=== PATIENT | female | born 1970 | race Hispanic/Latino ===

== ENCOUNTER 2019-10-10 10:26 | Emergency (ER) | payer SELFPAY ==
[2019-10-10 11:56] LABS: Absolute Lymphocytes (CBC) 1.6 K/uL (0.7-4.9); Basophils % 0.5 % (0-1.3); Hematocrit 40.9 % (36.0-45.0); Lymphocytes % 14.2 % (15.3-44.8); MPV 8.1 fL (7.6-11.3); RBC Red Blood Cell Count 4.43 M/uL (3.86-4.86)
[2019-10-10 12:15] LABS: Albumin 3.7 g/dL (3.4-5.0); Bilirubin Direct 0.3 mg/dL (0-0.2); Bilirubin Total 1.3 mg/dL (0.2-1.0); Potassium 3.6 mmol/L (3.5-5.1); Protein, Total 8.6 g/dL (6.4-8.2)
[2019-10-10 12:28] LABS: Urine Blood 2+ (NEG); Urine Glucose NEGATIVE (NEG); Urine Protein 3+ (NEG); Urine Specific Gravity 1.025 (1.005-1.030); Urine pH 7.5 (5.0-7.0)
[2019-10-10 14:09] LABS: Urine Bacteria 20-50 /HPF (<20); Urine Culture Reflex Order NOT NEEDED
--- NOTE | 2019-10-10 14:20 | RAD REPORT ---
EXAM DESCRIPTION: CT - Abdomen Pelvis W Contrast - 10/10/2019 2:04 pm CLINICAL HISTORY: ABD PAIN COMPARISON: No comparisons TECHNIQUE: Biphasic, helical CT imaging of the abdomen and pelvis was performed following 100 ml non -ionic IV contrast. No oral contrast. All CT scans are performed using dose optimization technique as appropriate and may include automated exposure control or mA/KV adjustment according to patient size. FINDINGS: No suspicious findings in the lung bases. Liver is borderline for fatty infiltration. No focal liver lesion. Portal vein enhances normally. Spl een and pancreas show no acute findings. Cholecystectomy clips in place with no biliary tree dilatati on. Renal function is asymmetric. There is delay on the left side. Heterogeneous enhancement pattern seen primarily in the upper pole of the left kidney. Hyperdense material in the calyx and calices favored to be contrast rather than a staghorn calculus. Attenuation is less than 500 Hounsfield units. No fo lydia mass lesion. No dilatation of either ureter. No obstructing ureteral calculi. Urinary bladder is fully contracted. No adrenal abnormalities. Uterus is absent. Ovaries are absent or obscured by adjac ent isodense bowel. No dilated bowel loops or bowel wall thickening. No free air, free fluid or inflammatory stranding. No hernia, mass or bulky lymphadenopathy. No suspicious bony findings. IMPRESSION: Pyelonephritis enhancement pattern in the left kidney. Contrast in the left-side nondil ated collecting system favored to be old contrast rather than a staghorn calculus. Urinary bladder is fully contracted limiting assessment. No right-sided collecting system abnormality . Borderline fatty infiltration of the liver.
[2019-10-10] MEDS ORDERED: CEFTRIAXONE/SWI 2gm 2 GM/20 ML SYR IV ONE (15:00)
--- NOTE | 2019-10-10 15:05 | ER ---
Nurse's Notes [facility] Name: Pilar Funez Age: 48 yrs Sex: Female : 1970 Arrival Date: 10/10/2019 Time: 10:29 Bed 15 Private MD: Diagnosis: Acute Pyelonephritis Presentation: 10/09 10:37 Chief complaint: Patient's son or daughter states: L flank pain radiating to the front ca1 x 2 days. Reports nausea with the pain, diarrhea. Denies vomiting. Reports dizziness and headache. Reports burning with urination, urgency and frequency. Reports history of kidney stones. Coronavirus screen: Proceed with normal triage. Patient denies a cough. Patient denies shortness of breath or difficulty breathing. Patient denies measured and/or subjective temperature greater than 100.4F prior to today's visit. Patient denies travel on a cruise ship or to a country the [facility] currently lists as an affected area. Patient denies contact with known and/or suspected case of COVID-19. Ebola Screen: Patient negative for fever greater than or equal to 101.5 degrees Fahrenheit, and additional compatible Ebola Virus Disease symptoms Patient denies exposure to infectious person. Patient denies travel to an Ebola-affected area in the 21 days before illness onset. No symptoms or risks identified at this time. Initial Sepsis Screen: Does the patient meet any 2 criteria? No. Patient's initial sepsis screen is negative. Does the patient have a suspected source of infection? No. Patient's initial sepsis screen is negative. Risk Assessment: Do you want to hurt yourself or someone else? Patient reports no desire to harm self or others. Onset of symptoms was October 10, 2019. 10:37 Method Of Arrival: Ambulatory ca1 10:37 Acuity: RUDDY 3 ca1 Triage Assessment: 10:53 General: Appears in no apparent distress. comfortable, obese, Behavior is cooperative, bp appropriate for age, anxious. Pain: Complains of pain in left flank. EENT: No deficits noted. Neuro: No deficits noted. Cardiovascular: No deficits noted. Respiratory: No deficits noted. GI: Reports nausea. : Reports pain in left flank(s). Derm: No deficits noted. Musculoskeletal: No deficits noted. 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 - Social history:: Smoking status: Patient denies any tobacco usage or history of. Screenin:54 Abuse screen: Denies threats or abuse. Denies injuries from another. Nutritional bp screening: No deficits noted. Tuberculosis screening: No symptoms or risk factors identified. Fall Risk None identified. Assessment: 10:54 General: SEE TRIAGE NOTE. GI: Abdomen is non-distended. bp 11:56 Reassessment: CT AND FURTHER UOP PENDING. bp 14:00 Reassessment: ABX PENDING. VS STABLE ON MONITOR. bp 15:36 Reassessment: PT D/C HOME AMBULATORY, DX WITH PYELONEPHRITIS. bp Vital Signs: 10:37 BP 109 / 71; Pulse 83; Resp 16 S; Temp 99.8(O); Pulse Ox 97% on R/A; Weight 88 kg (R); ca1 Height 4 ft. 9 in. (144.78 cm) (R); Pain 6/10; 11:56 BP 103 / 73; Pulse 74; Resp 16; Pulse Ox 95% ; bp 14:00 BP 106 / 66; Pulse 72; Resp 16; Pulse Ox 97% ; bp 15:36 BP 117 / 73; Pulse 75; Resp 17; Temp 98.9; Pulse Ox 100% ; bp 10:37 Body Mass Index 41.98 (88.00 kg, 144.78 cm) ca1 ED Course: 10:29 Patient arrived in ED. ag5 10:40 Triage completed. ca1 10:41 Arm band placed on right wrist. ca1 10:43 Marko Giles PA is PHCP. [facility] 10:43 Rg Rodriguez MD is Attending Physician. jmm 10:53 Pacheco Rothman, RACHEL is Primary Nurse. bp 10:54 Patient has correct armband on for positive identification. Bed in low position. Call bp light in reach. Side rails up X2. 11:56 Inserted saline lock: 20 gauge in left forearm, using aseptic technique. Blood bp collected. 14:03 CT Abd/Pelvis - IV Contrast Only In Process Unspecified. EDMS 15:36 No provider procedures requiring assistance completed. IV discontinued, intact, bp bleeding controlled, No redness/swelling at site. Pressure dressing applied. Administered Medications: 14:50 Drug: Rocephin - (cefTRIAXone) 2 grams Route: IVPB; Infused Over: 30 mins; Site: left bp antecubital; 15:42 Follow up: IV Status: Completed infusion bp Outcome: 15:04 Discharge ordered by . jmjesus 15:36 Discharged to home ambulatory. bp 15:36 Condition: stable 15:36 Discharge instructions given to patient, Instructed on discharge instructions, follow up and referral plans. medication usage, Demonstrated understanding of instructions, follow-up care, Prescriptions given X 2. 15:43 Patient left the ED. bp Addendum: 10/13/2019 08:08 Addendum: Culture Results: Positive urine culture. No further action required. Bacteria e b sensitive to prescribed antibiotic. Signatures: Dispatcher [employer] EDMS Marko Giles PA PA jmm Peltier, Brian, RN RN Felicitas Kramer Cheryl, RN RN ca1 Dejah Sullivan ag5 Corrections: (The following items were deleted from the chart) 10/09 14:33 14:00 Reassessment: bp bp
--- NOTE | 2019-10-10 15:05 | EDPHYS ---
Physician Documentation [facility] Name: Pilar Funez Age: 48 yrs Sex: Female : 1970 Arrival Date: 10/10/2019 Time: 10:29 Bed 15 Private MD: ED Physician Rg Rodriguez HPI: 10/09 10:44 This 48 yrs old Female presents to ER via Ambulatory with complaints of jmm Nausea, Headache, Side Pain. 10:44 The patient presents to the emergency department with nausea, diarrhea, abdominal pain. jmm Onset: The symptoms/episode began/occurred gradually, 2 day(s) ago. Possible causes: unknown. The symptoms are aggravated by nothing. The symptoms are alleviated by nothing. Associated signs and symptoms: Pertinent positives: abdominal pain, diarrhea, dysuria. This is a 48 year old female with a history of htn, DM that presents to the ED with complaints of left flank pain, abdominal pain, diarrhea, nausea beginning 2 days ago. History of kidney stones. Denies fever. . 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 - Social history:: Smoking status: Patient denies any tobacco usage or history of. ROS: 10:44 Constitutional: Negative for fever, chills, and weight loss, Cardiovascular: Negative jmm for chest pain, palpitations, and edema, Respiratory: Negative for shortness of breath, cough, wheezing, and pleuritic chest pain. 10:44 Abdomen/GI: Positive for abdominal pain, nausea, diarrhea. 10:44 Back: Positive for flank pain, on the left. 10:44 All other systems are negative. Exam: 10:44 Constitutional: This is a well developed, well nourished patient who is awake, alert, jmm and in no acute distress. Head/Face: atraumatic. Eyes: EOMI, no conjunctival erythema appreciated ENT: Moist Mucus Membranes Neck: Trachea midline, Supple Chest/axilla: Normal chest wall appearance and motion. Cardiovascular: Regular rate and rhythm. No edema appreciated Respiratory: Normal respirations, no respiratory distress appreciated Abdomen/GI: Non distended, soft Back: Normal ROM Skin: General appearance color normal MS/ Extremity: Moves all extremities, no obvious deformities appreciated, no edema noted to the lower extremities Neuro: Awake and alert, normal gait Psych: Behavior is normal, Mood is normal, Patient is cooperative and pleasant Vital Signs: 10:37 BP 109 / 71; Pulse 83; Resp 16 S; Temp 99.8(O); Pulse Ox 97% on R/A; Weight 88 kg (R); ca1 Height 4 ft. 9 in. (144.78 cm) (R); Pain 6/10; 11:56 BP 103 / 73; Pulse 74; Resp 16; Pulse Ox 95% ; bp 14:00 BP 106 / 66; Pulse 72; Resp 16; Pulse Ox 97% ; bp 15:36 BP 117 / 73; Pulse 75; Resp 17; Temp 98.9; Pulse Ox 100% ; bp 10:37 Body Mass Index 41.98 (88.00 kg, 144.78 cm) ca1 MDM: 10:44 Patient medically screened. musa 15:02 Data reviewed: vital signs, nurses notes. Counseling: I had a detailed discussion with tim the patient and/or guardian regarding: the historical points, exam findings, and any diagnostic results supporting the discharge/admit diagnosis, lab results, radiology results, the need for outpatient follow up, to return to the emergency department if symptoms worsen or persist or if there are any questions or concerns that arise at home. ED course: Patient is alert and non toxic in appearance in the ED. Patient advised to follow up with her pcp for reevaluation. Patient is advised to return to the ED if symptoms worsen. Patient understood and agrees with the plan of care. . 10/09 11:03 Order name: Basic Metabolic Panel; Complete Time: 12:22 [facility] 10/09 11:03 Order name: CBC with Diff; Complete Time: 12:22 [facility] 10/09 11:03 Order name: Creatinine for Radiology; Complete Time: 12:22 [facility] 10/09 11:03 Order name: Hepatic Function; Complete Time: 12:22 [facility] 10/09 11:03 Order name: Lipase; Complete Time: 12:22 [facility] 10/09 11:03 Order name: Lactate; Complete Time: 12:24 [facility] 10/09 10:55 Order name: Urine Dipstick-Ancillary (obtain specimen); Complete Time: 11:56 ca1 10/09 11:03 Order name: Procalcitonin; Complete Time: 13:09 [facility] 10/09 11:03 Order name: Blood Culture Adult (2) [facility] 10/09 11:03 Order name: Urine Culture [facility] 10/09 11:03 Order name: Urine Microscopic Only; Complete Time: 14:29 [facility] 10/09 11:30 Order name: Urine Dipstick--Ancillary (enter results); Complete Time: 13:09 bd 10/09 13:09 Order name: CT Abd/Pelvis - IV Contrast Only; Complete Time: 14:29 [facility] 10/09 11:03 Order name: IV Saline Lock; Complete Time: 11:55 [facility] 10/09 11:03 Order name: Labs collected and sent; Complete Time: 11:55 [facility] Administered Medications: 14:50 Drug: Rocephin - (cefTRIAXone) 2 grams Route: IVPB; Infused Over: 30 mins; Site: left bp antecubital; 15:42 Follow up: IV Status: Completed infusion bp Disposition: 10/10 09:39 Co-signature as Attending Physician, Rg Rodriguez MD I agree with the assessment and musa plan of care. Disposition: 10/10/19 15:04 Discharged to Home. Impression: Acute Pyelonephritis. - Condition is Stable. - Discharge Instructions: Pyelonephritis, Adult. - Prescriptions for Zofran ODT 4 mg Oral tablet,disintegrating - place 1 tablet by TRANSLINGUAL route every 4-6 hours; 20 tablet. Cipro 500 mg Oral Tablet - take 1 tablet by ORAL route every 12 hours for 10 days; 20 tablet. - Medication Reconciliation Form, Thank You Letter, Antibiotic Education, Prescription Opioid Use form. - Follow up: Private Physician; When: 2 - 3 days; Reason: Recheck today's complaints, Continuance of care, Re-evaluation by your physician. Signatures: Dispatcher [employer] Rg Curtis MD MD cha Mickail, Joel, PA PA jmm Peltier, Brian, RN RN bp Mary Gómez RN RN ca1 Corrections: (The following items were deleted from the chart) 10/09 15:43 15:04 10/10/2019 15:04 Discharged to Home. Impression: Acute Pyelonephritis. Condition bp is Stable. Forms are Medication Reconciliation Form, Thank You Letter, Antibiotic Education, Prescription Opioid Use. Follow up: Private Physician; When: 2 - 3 days; Reason: Recheck today's complaints, Continuance of care, Re-evaluation by your physician. tim
[2019-10-10] MEDS ORDERED: CEFTRIAXONE/SWI 1gm 2 GM/20 ML SYR ONE (15:09)
[2019-10-10] MEDS ORDERED: NA CHLORIDE 0.9% 100 ML IV ONE (15:09)
[2019-10-10 15:52] VITALS: BP 117/73; TEMP 98.9; O2SAT 100
== END 2019-10-10 15:43 | disposition home or self-care (01) ==
LOC: ER 10:26
DX: N10 Acute pyelonephritis (principal); I10 Essential (primary) hypertension; E11.9 Type 2 diabetes mellitus without complications
CPT/HCPCS: 36415; 74177; 80048; 80076; 81003; 81015; 83605; 83690; 84145; 85025; 87040; 87077; 87086; 87088; 87186; 96365; 99284; J0696